=== PATIENT | female | born 1950 | race Caucasian/White ===

== ENCOUNTER 2019-06-11 11:10 | Inpatient (IN) | payer OTHER ==
[~2019-06-11] VITALS: Ht 154.9 cm; Wt 51.7 kg
--- NOTE | 2019-06-11 11:48 | NUR ---
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 PER PT SHE HAS HAD THIS PAIN FOR ABOUT ONE MONTH NOW AND HAS SEEN HER PCP X 2 FOR THIS WHERE THEY DISGNOSED HER WITH A FRACTURE IN HER BACK AND THEN DID A BONE DENSITY SCAN WELL A UTI AND WAS TREATED WITH ABX. PT STATES THE PAIN IS STILL THERE. PT HAS PAIN UPON PALPATION. PT DENIES PAINFUL URINATION. PT HAS HX OF CANCER HOWEVER PT STATE SHE IS IN REMISSION AND HAD HER G TUBE TAKEN OUT IN FEBRUARY. NAD AT THIS TIME. PT AXO X 4. PT AMBULATES WITH STEADY GAIT. PT SPEAKING IN CLEAR AND FULL SENTENCES. DAUGHTER IN LAW AT BEDSIDE
[2019-06-11 12:08] LABS: BASOPHIL % 1.2 % (0-2); PLATELET COUNT 295 x10^3mcL (130-400); RED CELL DISTRIBUTION WIDTH 13.9 % (11.5-14.5)
[2019-06-11 12:15] LABS: UA SPECIFIC GRAVITY <=1.005 (1.005-1.035); microscopic required? YES; urine erythrocyte TRACE (NEGATIVE)
[2019-06-11 12:16] LABS: CALCIUM 9.5 mg/dL (8.5-10.1); CARBON DIOXIDE 23.6 mmol/L (21-32); CREATININE SERUM 1.8 mg/dL (0.6-1.0); POTASSIUM SERUM 3.7 mmol/L (3.5-5.1)
[2019-06-11 12:20] LABS: ALBUMIN 3.6 g/dL (3.4-5.0); BILIRUBIN TOTAL 0.47 mg/dL (0.20-1.00)
[2019-06-11 12:22] LABS: CHOLESTEROL/HDL RATIO 5.1; TOTAL PROTEIN, SERUM 8.3 g/dL (6.4-8.2)
[2019-06-11] MEDS ORDERED: VERAPAMIL HCL120 M2 PO (14:51)
[2019-06-11] MEDS ORDERED: LEVOXYL0.05 MG PO (14:51)
--- NOTE | 2019-06-11 15:23 | NUR ---
REPORT GIVEN TO LUANA PRECEPTEE. ALL QUESTIONS AND CONCERNS ADDRESSED AT THIS TIME.
--- NOTE | 2019-06-11 15:49 | NUR ---
PRIMARY RN ALEC UPSTAIRS AWARE PT WAS MEDICATED WITH ZOFRAN AND MORPHINE PRIOR TO COMING UP.
[2019-06-11 15:54] LABS: FREE T4 1.77 ng/dL (0.76-1.46)
[2019-06-11 15:55] LABS: FREE THYROXINE INDEX 4.8 ug/dL (1.4-4.5); T4(THYROXINE) 13.7 ug/dL (4.7-13.3)
[2019-06-11 16:03] LABS: T3 TOTAL 0.89 ng/mL
[2019-06-11 16:12] VITALS: BP 121/55
--- NOTE | 2019-06-11 18:14 | NUR ---
SEEN PATIENT COMFORTABLE, NO COMPLAINTS. IV NS INFUSING WELL AT 100CC/HR. IV PATENT AND FLUSHED WELL. CALL LIGHT WITHIN REACH .BED AT LOWEST POSITION.
--- NOTE | 2019-06-11 19:57 | NUR ---
PT RECIEVED AAO WITH FAMILY AT THE BEDSIDE,REG RESP NO SOB V/S STABLE,IV INFUSING WELL WITH THE SITE PATENT AND INTACT,BED IN THE LOW POSITION AND LOCKED,NO PAIN REPORTED AT THIS TIME,CALL LIGHT EASY REACHED AND WILL CONTINUE TO MONITOR.
[2019-06-11 20:33] VITALS: BP 150/60
--- NOTE | 2019-06-12 02:08 | NUR ---
PT WITH C/O OF PAIN AND PATIENT WAS MEDICATED WITH MORPHINE 1 MG IV ORDER AND WILL CONTINUE TO MONITOR.
[2019-06-12 05:07] VITALS: BP 109/48
[2019-06-12 06:11] LABS: BASOPHIL % 0.5 % (0-2); PLATELET COUNT 242 x10^3mcL (130-400); RED CELL DISTRIBUTION WIDTH 14.1 % (11.5-14.5)
--- NOTE | 2019-06-12 06:44 | NUR ---
PT HAD A RESTING NIGHT NO CHANGE AT THIS TIME,WILL CONTINUE TO MONITOR.
--- NOTE | 2019-06-12 07:30 | NUR ---
PT IS AAOX4. RESP EVEN AND UNLABORED. LUNG SOUNDS DIMINISHED BILATERAL LOWER LOBES. ON R/A. NO COUGH NOTED AT THIS TIME. IVF RUNNING TO [facility], SITE WNL. NO S/S OF INFECTION OR INFILTRATION. NO DISTRESS NOTED. DENIES PAIN. CALL LIGHT WITHIN REACH. BED IN LOWEST POSITION.
[2019-06-12 08:26] LABS: CALCIUM 8.2 mg/dL (8.5-10.1); CARBON DIOXIDE 25.6 mmol/L (21-32); CREATININE SERUM 1.4 mg/dL (0.6-1.0); POTASSIUM SERUM 4.4 mmol/L (3.5-5.1)
[2019-06-12 08:34] VITALS: BP 124/62
--- NOTE | 2019-06-12 09:36 | NUR ---
PT RECEIVED P/T TRAINING. PT AMBULATED HALLWAY AND BACK TO ROOM (100 FT) WITH FWW WITH STEADY GAIT AND CONTACT GUARD.
--- NOTE | 2019-06-12 09:50 | NUR ---
OXYCODONE 5 MG PO GIVEN FOR SHARP INCREASING PAIN 01/04. EXTRA FLUIDS GIVEN AND ENCOURAGED. SCHEDULED MEDS GIVEN AND TOLERATED WELL. FAMILY AT BEDSIDE. CALL LIGHT WITHIN REACH.
--- NOTE | 2019-06-12 10:51 | NUR ---
DR. DOWNING AND MEDICAL TEAM MET WITH PT AND DISCUSSED POC. PT IS TO HAVE PULMONARY AND ONCOLOGY CONSULTS. SOME TEST NEEDED MAY NOT BE DONE UNTIL FRIDAY. DR. DOWNING STATED PAIN MANAGEMENT IS A PRIORITY AND THE PT'S PRIOR PRESCRIBED ULTRAM APPEARS TO BE INEFFECTIVE. PT HAS BEEN STARTED ON OXYCODONE AND IF IT PROVES AN EFFECTIVE PAIN RELIEVER THE PT WILL BE PRESCRIBED IT UPON DISCHARGE. PT AGREED WITH POC.
--- NOTE | 2019-06-12 12:21 | NUR ---
DR. OGDEN MET WITH PT AND DISCUSSED POC. PT WILL NEED LUNG BIOPSY, THE PROCEDURE WILL NOT BE ABLE TO BE DONE UNTIL FRIDAY. PT AGREED WITH POC. RECEIVED ORDER FOR INCENTIVE SPIROMETER. ORDER NOTED AND CARRIED OUT. PT MADE AWARE.
--- NOTE | 2019-06-12 13:06 | NUR ---
IV FLUIDS REFRESHED. PT STATES NEW PAIN MEDICATION IS VERY EFFECTIVE IN TX HER PAIN. RESP EVEN AND UNLABORED. NO DISTRESS NOTED. CALL LIGHT WITHIN REACH. FAMILY VISITING AT BEDSIDE.
--- NOTE | 2019-06-12 15:20 | NUR ---
PT ASSISTED TO BATHROOM AND BACK TO BED. PT AMBULATED WITH STEADY GAIT. BED IN LOWEST POSITION. CALL LIGHT WITHIN REACH.
[2019-06-12 16:40] VITALS: BP 111/45
--- NOTE | 2019-06-12 17:18 | NUR ---
OXYCODONE 5 MG PO GIVEN TO PT FOR BACK AND CHEST PAIN 01/04. EXTRA FLUIDS GIVEN AND ENCOURAGED. RESP EVEN AND UNLABORED. FAMILY AT BEDSIDE VISITING. CALL LIGHT WITHIN REACH. WILL CONTINUE TO MONITOR.
--- NOTE | 2019-06-12 18:36 | NUR ---
PT IS AAOX4. RESP EVEN AND UNLABORED. NO DISTRESS NOTED. PT DENIES PAIN. IVF RUNNING TO LAC. SITE WNL. NO S/S OF INFECTION OR INFILTRATION. BED IN LOWEST POSITION. CALL LIGHT WITHIN REACH. WILL ENDORSE ALL CARE TO NOC RN.
--- NOTE | 2019-06-12 19:40 | NUR ---
RECEIVED REPORT FROM DAY SHIFT NURSE, KIRAN LECHUGA. PT IS AAOX4. SPEECH IS CLEAR. DENIES AYERS. FAMILY AT BEDSIDE. DENIES CP. PULSES ARE PALPABLE. NO EDEMA NOTED. BREATHING IS EVEN AND UNLABORED ON RA. LUNG SOUNDS ARE CTA, BLL DIMINISHED. NO SIGNS OF SOB OR RESP. DISTRESS. ENCOURAGED PT TO USE INCENTIVE SPIROMETER. ABD IS SOFT AND NONDISTENDED. BS ARE HYPOACTIVE. VOIDS FREELY. GENERALIZED WEAKNESS. SKIN INTACT. DENIES PAIN AT THIS TIME. BED IN LOWEST POSITION. CALL LIGHT WITHIN REACH. WILL CONTINUE TO MONITOR.
[2019-06-12 20:36] VITALS: BP 143/48
--- NOTE | 2019-06-12 21:59 | NUR ---
ROUTINE MEDICATIONS ADMINSTERED AND TOLERATED WELL. NO ACUTE DISTRESS NOTED. BREATHING IS EVEN AND UNLABORED ON RA. NO RESP DISTRESS NOTED. BED IN LOWEST POSITION. FAMILY AT BEDSIDE. WILL CONTINUE TO MONITOR.
--- NOTE | 2019-06-13 | NUR ---
PT C/O 03/06 PAIN ON BACK. MEDICATED WITH OXYCODONE PRN PER MAR ORDER. WILL REASSESS EFFECTIVENESS. NO ACUTE DISTRESS NOTED. BED IN LOWEST POSITION. CALL LIGHT WITHIN REACH. WILL CONTINUE TO MONITOR.
--- NOTE | 2019-06-13 02:17 | NUR ---
PT IS RESTING COMFORTABLY WITH EYES CLOSED, BUT EASILY AROUSABLE WHEN SPOKEN TO. BREATHING IS EVEN AND UNLABORED ON RA. NO RESP. DISTRESS NOTED. BED IN LOWEST POSITION. CALL LIGHT WITHIN REACH. WILL CONTINUE TO MONITOR.
--- NOTE | 2019-06-13 04:18 | NUR ---
PT RETURNED FROM BATHROOM AND STILL HAD NO BM. WILL INFORM DAY SHIFT NURSE. DENIES ANY PAIN AT THIS TIME. BED IN LOWEST POSITION. CALL LIGHT WITHIN REACH. WILL CONTINUE TO MONITOR.
[2019-06-13 05:46] VITALS: BP 130/57
[2019-06-13 06:32] LABS: CALCIUM 8.4 mg/dL (8.5-10.1); CARBON DIOXIDE 23.4 mmol/L (21-32); CREATININE SERUM 1.3 mg/dL (0.6-1.0); POTASSIUM SERUM 4.4 mmol/L (3.5-5.1)
--- NOTE | 2019-06-13 06:49 | NUR ---
PT SLEPT IN LONG INTERVALS THROUGHOUT THE NIGHT AND COMPLIED WITH NURSING CARE WITH NO ACUTE DISTRESS OCCCURRING DURING THE SHIFT. COMFORT AND SAFETY MEASURES MAINTAINED. PAIN MANAGEMENT MAINTAINED. ALL NEEDS ASSESSED AND ATTENDED TO. WILL CONTINUE TO MONITOR AND ENDORSE CARE TO DAY SHIFT NURSE.
[2019-06-13 07:01] LABS: BASOPHIL % 0.4 % (0-2); PLATELET COUNT 215 x10^3mcL (130-400)
--- NOTE | 2019-06-13 07:10 | NUR ---
PT IS AAOX4. RESP EVEN AND UNLABORED. LUNG SOUND DIMINISHED BILATERALLY. ON R/A. NO COUGH OR SOB NOTED. NORMAL S1S2 NOTED. IVF RUNNING TO LAC, SITE WNL. NO S/S OF INFECTION OR INFILTRATION. PT HAS C/O DECREASED APPETITE. PT HAS SCHEDULED MEGACE. PT DENIES PAIN AT THIS TIME. CALL LIGHT WITHIN REACH. SCDS IN PLACE. BED IN LOWEST POSITION.
[2019-06-13 08:18] VITALS: BP 150/63
--- NOTE | 2019-06-13 08:54 | NUR ---
OXYCODONE 5 MG PO GIVEN FOR BACK SPASMS 02/03. EXTRA FLUIDS GIVEN AND ENCOURAGED. PT REPOSITIONED FOR COMFORT. SCHEDULED MEDS GIVEN AND TOLERATED WELL. B/P 150/63, HR 60. CALL LIGHT WITHIN REACH.
--- NOTE | 2019-06-13 10:03 | NUR ---
DR. DOWNING AND MED TEAM MET WITH PT AND DISCUSSED POC. PER DR. OGDEN PT WILL HAVE CT GUIDED LUNG BIOPSY ON FRIDAY. PT CAN FOLLOW UP WITH THE RESULTS OF THE SCAN WITH HER ONCOLOGIST. PT MAY D/C ON FRIDAY AND PAIN MEDICATION WILL BE PRESCRIBED TO USE AT HOME. PT AGREED WITH POC.
--- NOTE | 2019-06-13 11:31 | NUR ---
LAB REPORTED THAT PT IS POSITIVE FOR MRSA IN THE NARES. PT AND FAMILY EDUCATED ON MRSA, HYGIENE WHEN POSITIVE FOR MRSA, AND GIVEN PAMPLET WITH EDUCATION ON MRSA. MRSA NOTIFICATION PAPER HAS BEEN SIGNED AND PLACED IN PT'S CHART. PT AND FAMILY VERBALIZED UNDERSTANDING ON MRSA AND CONTACT PRECATIONS. ALL QUESTIONS AND CONCERNS ANSWERED. DR. JOHNSON MADE AWARE, RECEIVED ORDER FROM DR. JOHNSON FOR MRSA ORDER SET.
--- NOTE | 2019-06-13 11:31 | NUR ---
LAB REPORTED THAT PT IS POSITIVE FOR MRSA IN THE NARES. PT AND FAMILY EDUCATED ON MRSA AND HYGIENE WHEN POSITIVE FOR MRSA. PT GIVEN PAMPLET WITH EDUCATION ON MRSA. MRSA NOTIFICATION PAPER HAS BEEN SIGNED AND PLACED IN PT'S CHART. PT AND FAMILY VERBALIZED UNDERSTANDING OF MRSA AND CONTACT PRECAUTIONS. ALL QUESTIONS AND CONCERNS ANSWERED. DR. JOHNSON MADE AWARE. RECEIVED ORDER FROM DR. JOHNSON FOR MRSA ORDER SET. ORDER NOTED AND CARRIED OUT. PT MADE AWARE.
[2019-06-13 11:36] VITALS: BP 140/53
--- NOTE | 2019-06-13 16:00 | NUR ---
OXYCODONE 5 MG PO GIVEN FOR ACHING BACK PAIN 02/03. EXTRA FLUIDS GIVEN AND ENCOURAGED. IV CATH TO LAC FELL OUT. SITE WNL. COVERED WITH GAUZE AND BANDAID. NEW IV CATH 22G STARTED ON 3RD ATTEMPT, PATENT WITH GOOD BLOOD RETURN. COVERED WITH CDI OCCLUSIVE DRESSING. PT TOLERATED PROCEDURE WELL. BED IN LOW POSITION. CALL LIGHT WITHIN REACH. SON AT BEDSIDE VISITING.
[2019-06-13 16:40] VITALS: BP 143/57
--- NOTE | 2019-06-13 18:21 | NUR ---
PT IS AAOX4. RESP EVEN AND UNLABORED. NO DISTRESS NOTED. PT DENIES BACK PAIN AT THIS TIME. IVF RUNNING TO LW. SITE WNL. NO S/S OF INFECTION OR INFILTRATION NOTED. CALL LIGHT WITHIN REACH. BED IN LOWEST POSTION. SON VISITING AT BEDSIDE. WILL ENDORSE CALL CARE TO NOC RN.
--- NOTE | 2019-06-13 19:40 | NUR ---
RECEIVED REPORT FROM DAY SHIFT NURSE, KIRAN LECHUGA. PT IS AAOX4. SPEECH IS CLEAR. DENIES AYERS. SON AT BEDSIDE. DENIES CP. PULSES ARE PALPABLE. NO EDEMA NOTED. BREATHING IS EVEN AND UNLABORED ON RA. LUNG SOUNDS CTA. ABD IS SOFT AND NONDISTENDED. BS HYPOACTIVE. ABLE TO AMBULATE TO BATHROOM, BUT HAS MILD GENERALIZED WEAKNESS. SKIN INTACT. PT STATES SHE HAS A LITTLE BIT OF PAIN, BUT THAT IT IS BAREABLE. WILL REASSESS PAIN LEVEL. IV TO LW DRY AND INTACT. NO ERYTHEMA NOTED. BED IN LOWEST POSITION. CALL LIGHT WITHIN REACH. WILL CONTINUE TO MONTIOR.
[2019-06-13 20:06] VITALS: BP 138/47
--- NOTE | 2019-06-13 22:00 | NUR ---
ROUTINE MEDICATIONS WERE ADMINISTERED AND TOLERATED WELL. NO ACUTE DISTRESS NOTED. PT DID C/O 8/ PAIN ON BACK. MEDICATED WITH OXYCODONE PRN PER SEP ORDER. WILL REASSESS AND CHECK EFFECTIVENESS. ASKED PT IF SHE HAD ANY QUESTIONS ABOUT CT LUNG BIOPSY TMRW. STATED SHE DID NOT HAVE ANY QUESTIONS. CONSENT FORM SIGNS AND IN CHART. INSTRUCTED PT SHE WILL BE NPO AFTER MIDNIGHT. PT VERBALIZES UNDERSTANDING. BED IN LOWEST POSITION. CALL LIGHT WITHIN REACH. WILL CONTINUE TO [id number].
[2019-06-14] VITALS (7 sets, daily range): BP systolic 121–163; BP diastolic 48–61
--- NOTE | 2019-06-14 00:35 | NUR ---
PT HAD BM. REPOSITIONED AND CHANGED. PT RESTING COMFORTABLY. NO ACUTE DISTRESS NOTED. BED IN LOWEST POSITION. CALL LIGHT WITHIN REACH. WILL CONTINUE TO MONITOR.
--- NOTE | 2019-06-14 00:38 | NUR ---
PT IS RESTING COMFORTABLY WITH EYES CLOSED, BUT EASILY AROUSABLE WHEN SPOKEN TO. BREATHING IS EVEN AND UNLABORED ON RA. NO SIGNS OF RESP. DISTRESS. BED IN LOWEST POSITION. CALL LIGHT WITHIN REACH. WILL CONTINUE TO MONITOR.
--- NOTE | 2019-06-14 02:32 | NUR ---
PT C/O 01/04 BACK PAIN. MEDICATED WITH MORPHINE IV PER SEP ORDER. WILL REASSESS AND CHECK EFFECTIVENESS. BREATHING IS EVEN AND UNLABORED ON RA. NO SIGNS OF RESP. DISTRESS. BED IN LOWEST POSITION. CALL LIGHT WITHIN REACH. WILL CONTINUE TO MONITOR.
--- NOTE | 2019-06-14 06:00 | NUR ---
PT SLEPT IN INTERVALS THROUGHOUT THE NIGHT WITH NO ACUTE EVENTS OCCURRING OVERNIGHT. COMFORT AND SAFETY MEASURES MAINTAINED. ALL NEEDS ASSESSED AND ATTENDED TO. WILL CONTINUE TO MONITOR AND ENDORSE CARE TO DAY SHIFT NURSE.
[2019-06-14 06:20] LABS: CARBON DIOXIDE 23.6 mmol/L (21-32); CREATININE SERUM 1.2 mg/dL (0.6-1.0); POTASSIUM SERUM 4.3 mmol/L (3.5-5.1)
[2019-06-14 06:54] LABS: BASOPHIL % 0.5 % (0-2); PLATELET COUNT 204 x10^3mcL (130-400); RED CELL DISTRIBUTION WIDTH 14.4 % (11.5-14.5)
--- NOTE | 2019-06-14 08:00 | NUR ---
SHIFT ASSESSMENT DONE. PATIENT A/A/OX4; CLEAR SPEECH. NO TELE. DENIED CHEST PAIN. NO SOB ON RA. BREATHING SOUND DIMINISHED SHAHIDA BASES. O2 SAT 95% ON RA. NPO FOR CCT GIUDE CHAZ BIOPSY THIS AM. IVF OF NS 100CC/HR; IV SITE CLEAN RFA. AMBULATORY. GENERAL WEAKNESS. MRSA (+) NARES. CONTACT ISOLATION. OXYCONTIN 5MG PO GIVEN AT 6:30 AM BY NOC NURSE. DENIED PAIN NOW. CALL LIGHT IN REACH.
--- NOTE | 2019-06-14 10:00 | NUR ---
WENT TO RADIOLOGY DEPT FOR BX.
--- NOTE | 2019-06-14 11:00 | NUR ---
BACK TO FLOOR AFTER BX DONE. V/S WNL. DRSG TO L UPPER BACK C/D/I. C/O BACK PAIN ON 01/04. OXYCONTIN 5MG PO GIVEN. IVF RESUMED.
[2019-06-14] MEDS ORDERED: OXYCODONE HYDROC5 M2 PO ×2 (12:42→17:03)
[2019-06-14] MEDS ORDERED: MEGL PO (12:43)
--- NOTE | 2019-06-14 16:05 | NUR ---
CONDITION STABLE. D/C TO HOME PER ORDER. INSTRUCTION GIVEN. IV D/C'D. OVER NEEDLE CATHETER INTACT.
--- NOTE | 2019-06-15 07:21 | NUR ---
PHYSICAL THERAPY DAILY NOTES CO-SIGN All documentation done by the Odd Job Worker for 06/14/19 has been reviewed. I agree with the documentation. Reviewed/Co-Signed by: Akilah Briceno PT Documentation Done by:JENNIE DOBBINS
[2019-06-17 13:49] VITALS: Ht 154.9 cm; Wt 51.7 kg
== END 2019-06-14 16:06 | disposition home or self-care (01) | DRG 542 ==
LOC: ED 11:10 → MU 14:54
PROVIDERS: Specialist; ADMIT Internal Medicine
PROC: 0BBJ3ZX Excision of Left Lower Lung Lobe, Percutaneous Approach, Diagnostic (ICD-10-PCS; principal; 2019-06-14)
DX: M48.54XA Collapsed vertebra, not elsewhere classified, thoracic region, initial encounter for fracture (principal); N17.0 Acute kidney failure with tubular necrosis; I31.3 Pericardial effusion (noninflammatory); J91.8 Pleural effusion in other conditions classified elsewhere; I10 Essential (primary) hypertension; E03.9 Hypothyroidism, unspecified; Z87.440 Personal history of urinary (tract) infections; Z79.899 Other long term (current) drug therapy; Z68.21 Body mass index [BMI] 21.0-21.9, adult; Z85.89 Personal history of malignant neoplasm of other organs and systems
CPT/HCPCS: 32405; 84439; 94150; 97116-GP; 97530-GP; G0378; J1885; J1956; J2001; J2250; J2270; J2405; J2800; J3010; J7030; Q0092; Q0162